=== PATIENT | female | born 1990 | race Caucasian/White ===

== ENCOUNTER 2017-01-11 00:17 | Emergency (ER) | payer OTHER ==
[2017-01-11] MEDS ORDERED: Albuterol/Ipratropium 3.0-0.5 MG/3 ML Neb Soln ONE (00:19)
[2017-01-11] MEDS ORDERED: Albuterol/Ipratropium 3.0-0.5 MG/3 ML Neb Soln NEB ONE (00:20)
[2017-01-11] MEDS ORDERED: Norflurane/HFc 245FA Medium Stream Spray 103.5 ML Can TOP ONE (00:20)
[2017-01-11] MEDS ORDERED: methylPREDNISolone Sodium Succinate 125 MG/2 ML SDV ONE (00:20)
[2017-01-11] MEDS ORDERED: methylPREDNISolone Sodium Succinate 125 MG/2 ML SDV IM ONE (00:20)
[2017-01-11] MEDS ORDERED: Norflurane/HFc 245FA Medium Stream Spray 103.5 ML Can ONE (00:21)
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
== END 2017-01-11 01:35 | disposition home or self-care (01) ==
LOC: LL.ED 00:17
DX: J70.5 Respiratory conditions due to smoke inhalation (principal); Z79.899 Other long term (current) drug therapy; Y92.63 Factory as the place of occurrence of the external cause; Y99.0 Civilian activity done for income or pay
CPT/HCPCS: 71020; 94640; 96372; 99284; J2930